=== PATIENT | female | born 1965 | race Caucasian/White ===

== ENCOUNTER 2019-04-07 13:10 | Emergency (ER) | payer OTHER ==
[~2019-04-07] VITALS: Ht 167.6 cm; Wt 50.0 kg
[~2019-04-07 13:10] MED LIST: ADVAIR 100/28 DISKUS IH; ALBUTEROL0.09 MG/A1 IH; ALLEGRA60 MG PO; FIORICET 325 MG1 TA1 PO; FLEXERIL 1010 MG/TAB PO; FLONASE NASAL S16 GM NS; LORTAB 5/500 501 TAB PO; NORCO 325 MG-51 TAB PO; PREDNISONE10 MG PO; PREDNISONE20 MG PO; RELPAX20 MG PO; SINGULAIR; SUDAFED 30M30 MG/TAB PO; TOPAMAX 25MG25 M1 PO; TRIAMCINOLONE IM; ZITHROMAX 250M250 MG PO; ZITHROMAX Z PA250 MG PO; ZOFRAN 4MG T4 MG/TAB PO; ZOLOFT 100MG100 MG PO; ZOLOFT 50MG50 MG PO; ZYRTEC-D 5 MG-11 TER PO
[2019-04-07 13:20] VITALS: TEMP 98.9
[2019-04-07] MEDS ORDERED: ZYRTEC 10MG10 MG PO (13:49)
[2019-04-07] MEDS ORDERED: LIDODERM 5% PATC1 EA TP (15:41)
[2019-04-07] MEDS ORDERED: NORCO 325 MG-51 TAB PO ×2 (15:41→19:04)
[2019-04-07] MEDS ORDERED: FLEXERIL 1010 MG/TAB PO (15:41)
[2019-04-07] MEDS ORDERED: PREDNISONE20 MG PO (15:41)
[2019-04-07 16:39] VITALS: BP 111/76; PULSE 67
== END 2019-04-07 16:39 | disposition home or self-care (01) ==
LOC: COL.ER 13:10
DX: M54.5 Low back pain (principal); Z79.51 Long term (current) use of inhaled steroids
CPT/HCPCS: J1100; J1170; J1200